=== PATIENT | female | born 1955 | race Caucasian/White ===

== ENCOUNTER → 2020-05-01 11:31 | Outpatient (CLI) | payer MEDICARE, OTHER, SELFPAY ==
--- NOTE | 2020-05-01 11:36 | DI.RAD.S_ITS ---
PROCEDURE: XR STERNUM MIN 2V INDICATIONS: tender lump on the sternum TECHNIQUE: 2 views of the sternum acquired. COMPARISON: None. FINDINGS: Bones: No fractures or dislocations. No suspicious bony lesions. Soft tissues: Retrosternal soft tissues appear normal. IMPRESSION: No fracture. If the patient's pain or other symptoms persist, consider further evaluation with CT. Dictated by: Brian Awad M.D. on 05/01/2020 at 12:00 Approved by: Brian Awad M.D. on 05/01/2020 at 12:02
== END ==
PROVIDERS: Family Provider Family Medicine; PCP Family Medicine; Referring Provider Nurse Practitioner Family; Visit Provider Nurse Practitioner Family
DX: R07.89 Other chest pain (principal)
CPT/HCPCS: 71120

== ENCOUNTER → 2020-05-30 09:20 | Outpatient (CLI) | payer MEDICARE, OTHER, SELFPAY ==
--- NOTE | 2020-05-30 09:22 | DI.MRI.S_ITS ---
PROCEDURE: MR CHEST WO CON INDICATIONS: sternum pain, tender lump TECHNIQUE: Axial 2-D FLASH in- and [id number], axial breath-hold T2 FSE, axial STIR FSE. Optional contrast may be given, followed by axial 2-D FLASH with fat saturation acquired over the lesion of concern. COMPARISON: [facility], CR, XR STERNUM MIN 2V, 05/01/2020, 11:31. FINDINGS: Image quality: Diagnostic. Respiratory motion is noted. Bones: Examination of sternum shows normal marrow signal and intact bony cortex. There is no sternal fracture. No marrow edema. No suspicious intraosseous lesion. Slight anteriorly deflected tip of xiphoid process is noted which is a normal variant. Soft tissues: No gross anterior chest wall soft tissue mass or fluid collection. Pectoralis muscles are symmetric and normal in size and signal intensity. No gross abnormality is seen in visualized bilateral breast soft tissue. Bilateral lung mays are grossly clear. No mediastinal lymphadenopathy or hematoma. IMPRESSION: 1. Slight anteriorly deflected tip of xiphoid process which is a normal variant. No sternal fracture or suspicious sternal lesion. 2. No anterior chest wall soft tissue abnormality. Dictated by: Domingo Page M.D. on 05/30/2020 at 10:18 Approved by: Domingo Page M.D. on 05/30/2020 at 10:32
== END ==
PROVIDERS: Family Provider Family Medicine; PCP Family Medicine; Referring Provider Nurse Practitioner Family; Visit Provider Nurse Practitioner Family
DX: R07.89 Other chest pain (principal)
CPT/HCPCS: 71550

== ENCOUNTER → 2020-09-26 09:28 | Outpatient (CLI) | payer MEDICARE, OTHER, SELFPAY ==
[2020-09-26 11:33] LABS: Creatinine Urine Random 115.1 mg/dL
[2020-09-26 11:36] LABS: Prothrombin Time 11.8 SECONDS (10.1-12.7)
[2020-09-26 11:37] LABS: Microalbumi Creatinin Ratio Ur 41.7 ug/mg CR (<30); Microalbumin Urine Random 4.8 mg/dL (0-1.6)
[2020-09-26 11:39] LABS: Add Manual Diff / Slide Review NO; Basophils Absolute Auto 0 /uL (0-100); Basophils Percent Auto 0.3 % (0-2); Eosinophils Absolute Auto 100 /uL (0-450); Eosinophils Percent Auto 1.2 % (2-4); Hematocrit 43.5 % (36-46); Hemoglobin 14.7 g/dL (12.0-16.0); Lymphocytes Absolute Auto 1600 /uL (1100-4500); Lymphocytes Percent Auto 21.6 % (25-40); Mean Corpuscular HGB Conc 33.7 % (30-36); Mean Corpuscular Volume 86.2 fL (80-100); Monocytes Absolute Auto 500 /uL (0-900); Monocytes Percent Auto 6.4 % (3-14); Neutrophils Absolute Auto 5400 /uL (1500-7000); Neutrophils Percent Auto 70.5 % (50-75); Platelet Count 224 X10^3/uL (150-400); Red Blood Cell Count 5.05 X10^6/uL (4.0-5.2); Red Cell Distribution Width 14.2 % (11.6-14.8); White Blood Cell Count 7.6 X10^3/uL (4.5-11.0)
[2020-09-26 12:03] LABS: Alanine Aminotransferase 37 IU/L (<35); Albumin 4.3 g/dL (3.5-5.0); Albumin Globulin Ratio 1.2 (1.0-2.8); Alkaline Phosphatase 86 U/L (38-126); Aspartate Aminotransferase 37 IU/L (14-36); Bilirubin Total 0.8 mg/dL (0.2-1.3); Blood Urea Nitrogen 20 mg/dL (7-17); Calcium 9.4 mg/dL (8.4-10.2); Carbon Dioxide 27 mmol/L (22-32); Chloride 108 mmol/L (98-107); Cholesterol 209 mg/dL (140-199); Estimated Glomerular Filt Rate > 60.0 mL/min (>60); Globulin 3.5 g/dL (1.7-4.1); Glucose 135 mg/dL (80-110); HDL Cholesterol 43 mg/dL (40-60); HEMOLYSIS < 15 (0-50); LDL Cholesterol Calculated 127 mg/dL (<100); Potassium 4.1 mmol/L (3.4-5.1); Sodium 142 mmol/L (137-145); Total Protein 7.8 g/dL (6.3-8.2); Triglycerides 194 mg/dL (35-150)
[2020-09-26 12:29] LABS: Thyroid Stimulating Hormone 0.913 uIU/mL (0.47-4.68)
== END ==
PROVIDERS: Family Provider Family Medicine; PCP Family Medicine; Referring Provider Family Medicine; Visit Provider Family Medicine
DX: E11.9 Type 2 diabetes mellitus without complications (principal); E78.2 Mixed hyperlipidemia
CPT/HCPCS: 36415; 80053; 80061; 82043; 82570; 83036; 84443; 85025; 85610

== ENCOUNTER → 2020-10-22 09:36 | Outpatient (CLI) | payer MEDICARE, OTHER, SELFPAY ==
[2020-10-22 10:09] LABS: COVID19 -Nasal RAPID Negative (Negative)
== END ==
PROVIDERS: Family Provider Family Medicine; PCP Family Medicine; Visit Provider Surgery
DX: Z01.812 Encounter for preprocedural laboratory examination (principal); Z11.59 Encounter for screening for other viral diseases
CPT/HCPCS: 87635; C9803

== ENCOUNTER 2020-10-23 12:19 | Day surgery (SDC) | payer MEDICARE, OTHER, SELFPAY ==
--- NOTE | 2020-10-23 | PATH_ITS ---
[facility] Accession Number: [id number] . 01 Material submitted: . PART A: colon - SIGMOID COLON POLYP PART B: colon - CECAL POLYP . 01 Clinical history: . SDC . 02 Diagnosis: A. Sigmoid Colon, Polyp, Biopsy: No colonic tissue identified. . B. Cecum, Polyp, Biopsy: No colonic tissue identified. [facility] 10/28/2020 1624 Local . 02 Comment: Both blocks A and B only contain vegetable/fecal material. Additional deeper levels were examined. . 02 Electronically signed: . Bernie Vargas MD, Pathologist NPI- [id number] . 01 Gross description: . Part A: SIGMOID COLON POLYP: Received in formalin is 1 fragment(s) of sanderson, soft tissue measuring 0.4 x 0.2 x 0.1 cm submitted entirely in 1 cassette(s) Part B: CECAL POLYP: Received in formalin is 1 fragment(s) of sanderson, soft tissue measuring 0.1 x 0.1 x 0.1 cm submitted entirely in 1 cassette(s) /QBJ 10/24/2020 0945 Local . 02 Pathologist provided ICD-10: Z12.11 . 02 CPT . 000972, [id number] Performed at: 01 [facility] [address] [facility], [place], [place] [id number] MD Apollo Vega MD Phone: [phone] Performed at: 02 [facility] [place] [address] [place], [place] [id number] MD Bernie Vargas MD Phone: [phone]
[2020-10-23] MEDS: LACTATED RINGERS 1,000 ML 200 ML IV (13:23)
[2020-10-23 13:24] VITALS: BP 147/79; PULSE 85; RESP 16; TEMP 36.9; O2SAT 97; BMI 34.2
--- NOTE | 2020-10-23 13:39 | P.HP_ITS ---
History of Present Illness History of Present Illness Date Patient Seen: 10/23/20 Time Patient Seen: 13:40 Chief complaint: [facility] Narrative: The patient presents for colorectal sreening. They have never had any previous examination for such. No personal or family history of colon cancer. On further history denies any recent gastrointestinal symptoms. No nausea, vomiting, abdominal pain, loss of appetite, unexplained weight loss, change in bowel habits, diarrhea, constipation, melena, hematochezia, or bright red blood per rectum. Patient History Medical History Chicken pox (~1960) Contusion of right side of back Depression (~2004) Diabetes mellitus (~2008) DVT (deep venous thrombosis) Hip pain History of Valencia's palsy Hyperlipidemia Hypertension Measles (~1962) Shoulder pain (~2014) Sleep apnea (~2013) Surgical History Anesthesia History of third molar tooth extraction (~1971) Status post laparoscopic cholecystectomy (~1997) Status post tonsillectomy and adenoidectomy (~1957) Family & Social History Family History Father Cancer Hypertension High cholesterol Grandfather Diabetes mellitus Stroke Mother Age: 95 Macular degeneration High cholesterol Grandmother Hypertension Family/Other No problems noted. Social History: household members spouse Tobacco & Substance use: Smoking Status Former smoker alcohol intake current alcohol intake frequency a few times a month Substance Use Type marijuana Meds Home Medications and Allergies Home Medications Medication Instructions Recorded Confirmed Type ASPIRIN (Aspirin) 81 mg PO Q DAY #0 01/03/12 10/23/20 History MULTIVITAMIN (#MULTIPLE VITAMINS) 1 cap PO Q DAY #0 01/03/12 10/23/20 History BORON/CA/CU/MG/MN/VIT D/ZINC 1 tab PO Q DAY #0 08/16/12 10/23/20 History (#CALCIUM 600 + MINERALS) One Touch Ultra Test Strips #1 ea 05/23/18 07/25/20 Rx liraglutide 0.6 mg/0.1 mL (18 mg/3 1.2 mg SUBCUT DAILY ml 09/07/19 10/23/20 History mL) subcutaneous pen injector lovastatin 20 mg tablet See Rx Instructions .ROUTE 12/03/19 10/23/20 Rx .COMPLEX #90 tablet glyburide 5 mg tablet 10 mg PO DAILY tab 05/01/20 10/23/20 History losartan 50 mg tablet 50 mg PO DAILY #90 tab 07/25/20 10/23/20 Rx venlafaxine 75 mg capsule,extended 75 mg PO BID #90 cap 07/25/20 10/23/20 Rx release 24 hr metformin 500 mg tablet 500 mg PO SEE INSTRUCTIONS #450 tab 08/18/20 10/23/20 Rx insulin detemir U-100 100 unit/mL See Rx Instructions SUBCUT BID 10/13/20 10/23/20 Rx (3 mL) subcutaneous pen #105 ml Allergies Allergy/AdvReac Type Severity Reaction Status Date / Time lisinopril [LISINOPRIL] Allergy Mild COUGHING Verified 10/23/20 13:14 amoxicillin [AMOXICILLIN] Allergy Unknown Verified 10/23/20 13:14 Review of Systems Review of Systems Narrative: A 10 point review of systems is negative except as noted in the HPI Exam Vital Signs (past 8 hours): - 10/23/20 13:24 Temperature 98.5 F Pulse Rate 85 Respiratory Rate 16 Blood Pressure 147/79 H Pulse Oximetry 97 Oxygen Delivery Method Room Air Narrative Exam Narrative: General-no acute distress, well nourished adult woman HEENT-moist mucous membranes, no scleral icterus Neck-supple, no lymphadenopathy Chest- non labored respirations, clear to auscultation bilaterally Cardiac-regular rate no peripheral edema Abdomen-soft, nontender, non distended Extremities-warm, well perfused Neurological-alert and oriented, no focal deficits Assessment & Plan Assessment & Plan narrative: The patient requires colorectal screening and colonoscopy is recommended. Technical details were discussed. Risks, benefits, alternatives explained. Risks including but not limited to myocardial infarction, aspiration, bleeding, pain, missed lesion, incomplete examination, need for further radiographic studies, colonic perforation, and need for major abdominal surgery were discussed. All questions were answered to their satisfaction, and they are in agreement with this plan.
--- NOTE | 2020-10-23 14:03 | SUR.OPER ---
CECUM AT 1403
--- NOTE | 2020-10-23 14:13 | P.OP.ENDO_ITS ---
Operative Date/Time/Diagnoses Date of procedure: 10/23/20 Time of procedure: 14:13 Pre-op diagnosis: Screening colonoscopy Post-op diagnosis: other (Colonic polyps x2) Procedure & Clinicians Study performed: Colonoscopy Same procedure as scheduled: Yes Indications: 65-year-old woman no prior colonoscopy here for routine screening Surgeon: Bernardino Block Procedure Notes SCOAP/Timeout: Performed Procedure in detail: Medications: Conscious sedation using 6mg IV midazolam and 150mcg IV of fentanyl The history and physical was performed/updated and the patient is ASA class is 2. The procedure was discussed in detail with the patient. Potential risks complications including infection, bleeding, missed diagnosis, perforation, need for surgery, and were explained. Their questions were answered and informed consent was obtained. Patient was brought to the procedure room and placed standard monitoring equipment. The patient's vital signs were monitored continuously throughout the entire procedure. Prior to starting time-out was performed. The patient was placed in the left lateral recumbent position. Procedural sedation was administered. Examination began with a thorough inspection of the perianal area there was no evidence of fissures, fistulae, external hemorrhoids or cutaneous malignancy. The colonoscopy scope was then placed into the anal canal and was advanced to the cecum, which was identified by the ileocecal valve, the appendiceal orifice and the confluence of the taenia. The scope was then slowly withdrawn examining colon thoroughly in all directions, irrigating it of any r esidual stool. 1 cm cecal polyp removed with cold snare in its entirety 1 cm sigmoid pedunculated polyp removed with cold snare in its entirety Sigmoid diverticulosis The patient tolerated the procedure well. They will be discharged once criteria are met. The prep was of good/excellent quality. The withdrawl time was 9 minutes. The sedation time was 26minutes. Specimen(s): other (Cecal, sigmoid polyps) Complications: none Impression: Colonic polyps Post-procedure Recommendations: Colonscopy in 5 years Disposition: same day surgery
[2020-10-23] MEDS: MIDAZOLAM 5 MG/5 ML VIAL IV (14:15)
[2020-10-23] MEDS: fentaNYL 250 MCG/5 ML INJ IV (14:15)
[2020-10-23 14:17] VITALS: BP 128/76; PULSE 97; RESP 13; TEMP 36.3; O2SAT 94
[2020-10-23 14:22] VITALS: BP 128/71; PULSE 105; RESP 14; O2SAT 94
[2020-10-23 14:27] VITALS: BP 134/76; PULSE 90; RESP 13; O2SAT 95
[2020-10-23 14:32] VITALS: BP 134/73; PULSE 92; RESP 16; O2SAT 95
[2020-10-23 14:37] VITALS: BP 150/83; PULSE 82; RESP 12; TEMP 36.3; O2SAT 95
== END 2020-10-23 14:58 | disposition home or self-care (01) ==
PROVIDERS: Family Provider Family Medicine; PCP Family Medicine; Referring Provider Family Medicine; Visit Provider Surgery
PROC: 0DJD8ZZ Inspection of Lower Intestinal Tract, Via Natural or Artificial Opening Endoscopic (ICD-10-PCS; CPT 45378; principal; 2020-10-23 13:45)
DX: Z12.11 Encounter for screening for malignant neoplasm of colon (principal); E11.9 Type 2 diabetes mellitus without complications; E78.5 Hyperlipidemia, unspecified; I10 Essential (primary) hypertension; G47.30 Sleep apnea, unspecified; Z86.718 Personal history of other venous thrombosis and embolism; Z79.4 Long term (current) use of insulin; K57.30 Diverticulosis of large intestine without perforation or abscess without bleeding
CPT/HCPCS: 45385; 99152; 99153; J2250; J3010

== ENCOUNTER → 2020-12-27 09:33 | Outpatient (CLI) | payer MEDICARE, OTHER, SELFPAY ==
--- NOTE | 2020-12-27 09:36 | DI.MG.S_ITS ---
BILATERAL DIGITAL SCREENING MAMMOGRAM 3D/2D WITH CAD: 12/27/2020 CLINICAL: Routine screening. Comparison is made to exams dated: 02/09/2018 mammogram, 11/10/2015 mammogram, and 10/23/2014 mammogram - [facility]. There are scattered fibroglandular elements in both breasts. Current study was also evaluated with a Computer Aided Detection (CAD) system. No significant masses, calcifications, or other findings are seen in either breast. There has been no significant interval change. IMPRESSION: NEGATIVE There is no mammographic evidence of malignancy. A 1 year screening mammogram is recommended. This exam was interpreted at Station ID: [id number]. NOTE: For mammograms, a report in lay terms will be sent to the patient. Approximately 15% of breast malignancies will not be visualized mammographically. In the management of a palpable breast mass, a negative mammogram must not discourage biopsy of a clinically suspicious lesion. Electronically Signed By: Nahun quiros/jaylen:12/29/2020 07:49:14 copy to: [employer] letter sent: Normal Exam ACR BI-RADS Category 1: Negative [id number]
== END ==
PROVIDERS: Family Provider Family Medicine; PCP Family Medicine; Referring Provider Family Medicine; Visit Provider Family Medicine
DX: Z12.31 Encounter for screening mammogram for malignant neoplasm of breast (principal)
CPT/HCPCS: 77063; 77067

== ENCOUNTER → 2022-06-11 08:32 | Outpatient (CLI) | payer MEDICARE, OTHER, SELFPAY ==
[2022-06-11 10:23] LABS: Add Manual Diff / Slide Review NO; Basophils Absolute Auto 0 /uL (0-100); Basophils Percent Auto 0.4 % (0-2); Eosinophils Absolute Auto 100 /uL (0-450); Eosinophils Percent Auto 1.5 % (2-4); Hematocrit 42.4 % (36-46); Hemoglobin 14.6 g/dL (12.0-16.0); Lymphocytes Absolute Auto 1200 /uL (1100-4500); Mean Corpuscular HGB Conc 34.4 % (30-36); Mean Corpuscular Volume 84.3 fL (80-100); Monocytes Absolute Auto 900 /uL (0-900); Neutrophils Absolute Auto 2900 /uL (1500-7000); Neutrophils Percent Auto 58.1 % (50-75); Platelet Count 163 X10^3/uL (150-400); Red Blood Cell Count 5.03 X10^6/uL (4.0-5.2); Red Cell Distribution Width 13.9 % (11.6-14.8)
[2022-06-11 10:35] LABS: Alanine Aminotransferase 61 IU/L (<35); Albumin 4.4 g/dL (3.5-5.0); Albumin Globulin Ratio 1.5 (1.0-2.8); Alkaline Phosphatase 76 U/L (38-126); Aspartate Aminotransferase 67 IU/L (14-36); BUN Creatinine Ratio 21.2 (6-22); Bilirubin Total 0.9 mg/dL (0.2-1.3); Blood Urea Nitrogen 14 mg/dL (7-17); Calcium 9.1 mg/dL (8.4-10.2); Carbon Dioxide 25 mmol/L (22-32); Chloride 103 mmol/L (98-107); Cholesterol 93 mg/dL (140-199); Estimated Glomerular Filt Rate > 60 mL/min (>60); Globulin 2.9 g/dL (1.7-4.1); Glucose 143 mg/dL (80-110); HDL Cholesterol 40 mg/dL (40-60); HEMOLYSIS < 15 (0-50); LDL Cholesterol Calculated 31 mg/dL (<100); Potassium 4.3 mmol/L (3.4-5.1); Sodium 139 mmol/L (137-145); Total Protein 7.3 g/dL (6.3-8.2); Triglycerides 110 mg/dL (35-150)
[2022-06-11 10:36] LABS: Hemoglobin A1C% w Est Avg Glu 7.3 % (4.0-6.0)
[2022-06-11 16:13] LABS: Creatinine Urine Random 14.9 mg/dL
[2022-06-11 16:16] LABS: Microalbumi Creatinin Ratio Ur 53.6 ug/mg CR (<30); Microalbumin Urine Random 0.8 mg/dL (0-1.6)
== END ==
PROVIDERS: Family Provider Family Medicine; PCP Family Medicine; Referring Provider Family Medicine; Visit Provider Family Medicine
DX: E11.9 Type 2 diabetes mellitus without complications (principal); E78.2 Mixed hyperlipidemia; Z79.4 Long term (current) use of insulin
CPT/HCPCS: 36415; 80053; 80061; 82043; 82570; 83036; 85025

== ENCOUNTER 2022-08-13 11:31 | Emergency (ER) | payer MEDICARE, OTHER, SELFPAY ==
[2022-08-13] VITALS (12 sets, daily range): BP systolic 141–166; BP diastolic 70–90; PULSE 69–86; RESP 16–18; TEMP 36.8; O2SAT 96–98; BMI 33.6
--- NOTE | 2022-08-13 11:45 | DI.RAD.S_ITS ---
PROCEDURE: XR FOREARM LT 2V INDICATIONS: Fall with pain/bruising TECHNIQUE: 2 views of the forearm were acquired. COMPARISON: None. FINDINGS: Bones: No fractures or dislocations. No suspicious bony lesions. Soft tissues: No suspicious soft tissue calcifications or masses. There is mild soft tissue swelling of the left forearm. IMPRESSION: Mild left forearm soft tissue swelling without underlying fracture or dislocation. If there is persistent clinical concern for occult fracture given adequate mechanism of injury, consider repeat imaging in 10-14 days. Dictated by: Nahun Bonilla M.D. on 08/13/2022 at 12:02 Approved by: Nahun Bonilla M.D. on 08/13/2022 at 12:06
--- NOTE | 2022-08-13 13:16 | ED_ITS ---
HPI - Fall <Zay Pierce PA-C - Last Filed: 08/13/22 16:31> General Chief Complaint: Fall Stated Complaint: Fall yesterday, L arm pain, hit head Time Seen by Provider: 08/13/22 11:55 Source: patient Mode of arrival: Ambulatory History of Present Illness HPI Narrative: Patient is a 58-year-old female who presents emergency room today with complaint of falling yesterday also some driftwood. Stasis or she can remember she tripped and fell. When she feels she landed on her left arm and also scratched her face. Denies any trauma to the head and also denies syncope. Also states she fell about 2 weeks ago when she was walking and tripped on some wheeze. Denies any feeling of dizziness or inability to keep her balance. Admits to being a marijuana smoker but states she did not have any marijuana prior to the fall. Also denies a history of drinking. Denies chest pain shortness of breath or any other neurological concerns. Main concern is pain to her left arm. Admits to having occurred history of type 2 diabetes but states that is well controlled she takes her medicines as ordered. Denies any other concerns Related Data Home Medications Medication Instructions Recorded Confirmed ASPIRIN (Aspirin) 81 mg PO Q DAY ##0 01/03/12 03/26/21 apple cider vinegar 600 mg capsule 600 mg PO DAILY 05/21/22 05/21/22 cinnamon bark 500 mg capsule 500 mg PO DAILY 05/21/22 05/21/22 (Cinnamon) omega 7-rvr-gal-fish oil 300 1 cap PO DAILY 05/21/22 05/21/22 mg-1,000 mg capsule (Fish Oil) vit C 250 mg-vit E 90 mg-zinc 40 1 tab PO BID 05/21/22 05/21/22 mg-copper 1 [id number] capsule (PreserVision AREDS-2) Previous Rx's Medication Instructions Recorded One Touch Ultra Test Strips #1 ea 05/23/18 losartan 50 mg tablet (Cozaar) 50 mg PO DAILY #90 tabs 09/17/21 venlafaxine 75 mg capsule,extended See Rx Instructions .Route 02/23/22 release 24 hr .COMPLEX #180 caps glyburide 5 mg tablet 10 mg PO DAILY #180 tabs 07/01/22 insulin detemir U-100 100 unit/mL See Rx Instructions SUBCUT BID 05/21/22 (3 mL) subcutaneous pen (Levemir #105 mL FlexTouch U-100 Insulin) liraglutide 0.6 mg/0.1 mL (18 mg/3 1.2 mg (0.2 mL) SUBCUT DAILY #6 mL 05/21/22 mL) subcutaneous pen injector (Victoza 2-Maged) metformin 500 mg tablet See Rx Instructions .Route 05/21/22 .COMPLEX #450 tabs nirmatrelvir 300 mg (150 mg See Rx Instructions PO .COMPLEX 06/11/22 x2)-ritonavir 100 mg tablet,dose #30 tabs pack(EUA) (Paxlovid) nitrofurantoin 100 mg PO BID #10 caps 08/13/22 monohydrate/macrocrystals 100 mg capsule (Macrobid) Allergies Allergy/AdvReac Type Severity Reaction Status Date / Time lisinopril [LISINOPRIL] Allergy Mild COUGHING Verified 05/21/22 08:57 amoxicillin [AMOXICILLIN] Allergy Unknown Verified 05/21/22 08:57 Review of Systems <Zay Pierce PA-C - Last Filed: 08/13/22 16:31> Review of Systems Narrative: R.O.S.: General: No fever, chills or fatigue. Cardiovascular: No chest pain or palpitations Respiratory: No S.O.B. HEENT: No congestion, ear pain, rhinorrhea, sore throat or tinnitus Gastrointestinal: No nausea or vomiting Skin: No rash or associated abnormalities Musculoskeletal: Pain to left forearm status post fall? Neurological: Awake, alert and in not apparent distress. No Headaches, changes in vision or other related neurological concerns. Patient History <Zay Pierce PA-C - Last Filed: 08/13/22 16:31> Medical History (Updated 08/13/22 @ 16:27 by Zay Pierce PA-C) Allergies (~1997) Ankle sprain Anxiety (~2009) Cervical somatic dysfunction Chicken pox (~1960) Contusion of right side of back Depression (~2004) Diabetes mellitus (~2008) DVT (deep venous thrombosis) Hip pain History of Valencia's palsy (~1989) Hot flashes Hyperlipidemia Hypertension Lumbar region somatic dysfunction Measles (~1962) Pelvic somatic dysfunction Sacral region somatic dysfunction Scabies (~1974) Shoulder pain (~2014) Sleep apnea (~2013) Somatic dysfunction of lower extremity Thoracic region somatic dysfunction Transaminitis Urge incontinence of urine Surgical History Anesthesia H/O hand surgery History of colonoscopy (~2019) History of third molar tooth extraction (~1971) Status post laparoscopic cholecystectomy (~1997) Status post tonsillectomy and adenoidectomy (~1957) Family History Father Cancer Hypertension High cholesterol Grandfather Diabetes mellitus Stroke Mother Age: 97 Macular degeneration High cholesterol Grandmother Hypertension Family/Other No problems noted. Social History household members: spouse Smoking Status: Former smoker alcohol intake: current Smoking Status: Former smoker alcohol intake frequency: holidays/special occasions only Substance Use Type: marijuana Exam <Zay Pierce PA-C - Last Filed: 08/13/22 16:31> Narrative Exam Narrative: Physical Exam: ? General: normal appearance, well developed, well nourished, alert, and awake. Not in acute distress. ? Head: Normocephalic, no lesions. Chest: Lungs CTAB, no rales, rhonchi or wheezes. ?? Heart: RRR, no murmurs, rubs or gallops. Eyes: PERRLA, EOM's full, conjunctivae clear. ? Neuro: Physiological, no localizing findings, CN3-12 intact. ?? Extremities: Patient has complaint of pain to palpation lateral at the proximal elbow and distal wrist areas. The left elbow area has very minimal swelling and no erythema noted on his physical inspection. ? Skin: Patient has a very mild abrasion above the left lateral eyebrow area. There is no associated erythema or swelling. ? PSYCHIATRIC: The mood is good, no blunted affect. Speech is clear. Thought process is linear, thought content is appropriate. The voice is without significant inflection. Gastrointestinal: Soft; NT; ND; Pos BS with Neg. rebound tenderness. No scars or major deformities noted on Visual Inspection. Initial Vital Signs Initial Vital Signs: Vital Signs Pulse Rate 86 08/13/22 11:36 Pulse Oximetry 96 08/13/22 11:36 <Joshua Merchant MD - Last Filed: 08/18/22 06:57> Initial Vital Signs Initial Vital Signs: Vital Signs Pulse Rate 86 08/13/22 11:36 Pulse Oximetry 96 08/13/22 11:36 Course <Zay Pierce PA-C - Last Filed: 08/13/22 16:31> Orders Ordered: ED Orders 08/13/22 11:45 XR forearm LT 2V Stat 08/13/22 13:56 EKG-12 Lead Stat 08/13/22 14:45 CBC Auto Diff [Complete Blood Count AUTO DIFF] Stat CMP [Comprehensive Metabolic Panel] Stat 08/13/22 15:18 Urine Culture Stat 08/13/22 15:30 Urine Microscopic Stat Vital Signs Vital signs: Vital Signs - 8 hr 08/13/22 11:42 08/13/22 11:36 08/13/22 11:37 Temperature 98.3 F Pulse Rate 74 86 80 Respiratory Rate 16 Blood Pressure 166/76 H Pulse Oximetry 98 96 98 Oxygen Delivery Method Room Air 08/13/22 11:37 08/13/22 12:00 08/13/22 13:24 Temperature Pulse Rate 73 Respiratory Rate 18 Blood Pressure 166/76 H 160/70 H Pulse Oximetry 96 Oxygen Delivery Method 08/13/22 12:30 08/13/22 13:00 08/13/22 13:30 Temperature Pulse Rate 77 73 69 Respiratory Rate Blood Pressure Pulse Oximetry 96 96 97 Oxygen Delivery Method 08/13/22 14:00 08/13/22 14:30 08/13/22 14:51 Temperature Pulse Rate 69 72 78 Respiratory Rate Blood Pressure Pulse Oximetry 97 98 98 Oxygen Delivery Method 08/13/22 14:51 08/13/22 15:00 08/13/22 15:00 Temperature Pulse Rate 72 Respiratory Rate Blood Pressure 147/90 H 141/74 H Pulse Oximetry 98 Oxygen Delivery Method <Joshua Merchant MD - Last Filed: 08/18/22 06:57> Orders Ordered: ED Orders 08/13/22 11:45 XR forearm LT 2V Stat 08/13/22 13:56 EKG-12 Lead Stat 08/13/22 14:45 CBC Auto Diff [Complete Blood Count AUTO DIFF] Stat CMP [Comprehensive Metabolic Panel] Stat 08/13/22 15:18 Urine Culture Stat 08/13/22 15:30 Urine Microscopic Stat Vital Signs Vital signs: Vital Signs - 8 hr 08/13/22 11:42 08/13/22 11:36 08/13/22 11:37 Temperature 98.3 F Pulse Rate 74 86 80 Respiratory Rate 16 Blood Pressure 166/76 H Pulse Oximetry 98 96 98 Oxygen Delivery Method Room Air 08/13/22 11:37 08/13/22 12:00 08/13/22 13:24 Temperature Pulse Rate 73 Respiratory Rate 18 Blood Pressure 166/76 H 160/70 H Pulse Oximetry 96 Oxygen Delivery Method 08/13/22 12:30 08/13/22 13:00 08/13/22 13:30 Temperature Pulse Rate 77 73 69 Respiratory Rate Blood Pressure Pulse Oximetry 96 96 97 Oxygen Delivery Method 08/13/22 14:00 08/13/22 14:30 08/13/22 14:51 Temperature Pulse Rate 69 72 78 Respiratory Rate Blood Pressure Pulse Oximetry 97 98 98 Oxygen Delivery Method 08/13/22 14:51 08/13/22 15:00 08/13/22 15:00 Temperature Pulse Rate 72 Respiratory Rate Blood Pressure 147/90 H 141/74 H Pulse Oximetry 98 Oxygen Delivery Method MDM - Fall <Zay Pierce PA-C - Last Filed: 08/13/22 16:31> Lab Data Result diagrams: 08/13/22 14:45 08/13/22 14:45 Labs: Lab Results 08/13/22 08/13/22 08/13/22 Range/Units 14:45 14:45 15:18 WBC 9.5 (4.5-11.0) X10^3/uL RBC 5.04 (4.0-5.2) X10^6/uL Hgb 14.5 (12.0-16.0) g/dL Hct 42.9 (36-46) % MCV 85.1 (80-100) fL MCH 28.8 (26-34) PG MCHC 33.8 (30-36) % RDW 14.3 (11.6-14.8) % Plt Count 184 (150-400) X10^3/uL Neut % (Auto) 65.0 (50-75) % Lymph % (Auto) 25.0 (25-40) % [place] % (Auto) 8.0 (3-14) % Eos % (Auto) 1.5 L (2-4) % Baso % (Auto) 0.5 (0-2) % Neut # (Auto) 6200 (5338-3974) /uL Lymph # (Auto) 2400 (3644-2170) /uL [place] # (Auto) 800 (0-900) /uL Eos # (Auto) 100 (0-450) /uL Baso # (Auto) 0 (0-100) /uL Sodium 141 (137-145) mmol/L Potassium 4.0 (3.4-5.1) mmol/L Chloride 106 (98-107) mmol/L Carbon Dioxide 26 (22-32) mmol/L BUN 17 (7-17) mg/dL Creatinine 0.66 (0.52-1.04) mg/dL Estimated GFR > 60 (>60) mL/min BUN/Creatinine Ratio 25.8 H (6-22) Glucose 84 (80-110) mg/dL Calcium 9.5 (8.4-10.2) mg/dL Total Bilirubin 0.7 (0.2-1.3) mg/dL AST 44 H (14-36) IU/L ALT 39 H (<35) IU/L Alkaline Phosphatase 62 (38-126) U/L Total Protein 7.7 (6.3-8.2) g/dL Albumin 4.3 (3.5-5.0) g/dL Globulin 3.4 (1.7-4.1) g/dL Albumin/Globulin Ratio 1.3 (1.0-2.8) Urine RBC 0-1/hpf (0-5/HPF) Urine WBC 10-30/hpf H (0-5/HPF) Urine Bacteria Many (>30) H (None) Ur Culture Indicated? Specimen cultured Urine Dip Bedside Urine Glucose 1000 mg/dl Bedside Urine Bilirubin - Negative Bedside Urine Ketone - Negative Urine Specific [place] 1.015 Bedside Urine Occult Blood - Negative Bedside Urine pH 5.5 Bedside Urine Protein - Negative Bedside Urine Urobilinogen - Negative Bedside Urine Nitrite + Positive Bedside Urine Leukocytes - Negative Esterase Imaging Data Extremity x-ray #1: Radiologist's Impression: PROCEDURE:? XR FOREARM LT 2V ? INDICATIONS:? Fall with pain/bruising ? TECHNIQUE:? 2 views of the forearm were acquired.? ? COMPARISON:? None. ? FINDINGS:? ? Bones:? No fractures or dislocations.? No suspicious bony lesions.? ? Soft tissues:? No suspicious soft tissue calcifications or masses.? There is mild soft tissue swelling of the left forearm. ? ? IMPRESSION:? Mild left forearm soft tissue swelling without underlying fracture or dislocation. ? If there is persistent clinical concern for occult fracture given adequate mechanism of injury, consider repeat imaging in 10-14 days. ? Dictated by: Nahun Bonilla M.D. on 08/13/2022 at 12:02 ? ? Approved by: Nahun Bonilla M.D. on 08/13/2022 at 12:06 ? ECG Data Interpretation: NSR MDM Narrative Medical decision making narrative: Patient is a 66-year-old female presents to the emergency room with pain to her left forearm after falling yesterday. Denies any alcohol marijuana or recreational drugs prior to the fall. Says she has fallen before but does not have any concerning history of falls without a ablation for AFib ablation for AFib ablation for AFib ablation for AFib mechanism. ECG was ordered to rule out any possible cardiac related concerns. CBC CMP and urine ordered to help rule out any infectious or other potential related concerns. Eight AST ALT in BUN creatinine and elevated as they have been in the past. Urine positive for urinary tract infection. Patient cannot remember having a urinary tract infection in the past so Macrobid ordered. <Joshua Merchant MD - Last Filed: 08/18/22 06:57> Lab Data Labs: Lab Results 08/13/22 08/13/22 08/13/22 Range/Units 14:45 14:45 15:18 WBC 9.5 (4.5-11.0) X10^3/uL RBC 5.04 (4.0-5.2) X10^6/uL Hgb 14.5 (12.0-16.0) g/dL Hct 42.9 (36-46) % MCV 85.1 (80-100) fL MCH 28.8 (26-34) PG MCHC 33.8 (30-36) % RDW 14.3 (11.6-14.8) % Plt Count 184 (150-400) X10^3/uL Neut % (Auto) 65.0 (50-75) % Lymph % (Auto) 25.0 (25-40) % [place] % (Auto) 8.0 (3-14) % Eos % (Auto) 1.5 L (2-4) % Baso % (Auto) 0.5 (0-2) % Neut # (Auto) 6200 (0460-7415) /uL Lymph # (Auto) 2400 (9567-3456) /uL [place] # (Auto) 800 (0-900) /uL Eos # (Auto) 100 (0-450) /uL Baso # (Auto) 0 (0-100) /uL Sodium 141 (137-145) mmol/L Potassium 4.0 (3.4-5.1) mmol/L Chloride 106 (98-107) mmol/L Carbon Dioxide 26 (22-32) mmol/L BUN 17 (7-17) mg/dL Creatinine 0.66 (0.52-1.04) mg/dL Estimated GFR > 60 (>60) mL/min BUN/Creatinine Ratio 25.8 H (6-22) Glucose 84 (80-110) mg/dL Calcium 9.5 (8.4-10.2) mg/dL Total Bilirubin 0.7 (0.2-1.3) mg/dL AST 44 H (14-36) IU/L ALT 39 H (<35) IU/L Alkaline Phosphatase 62 (38-126) U/L Total Protein 7.7 (6.3-8.2) g/dL Albumin 4.3 (3.5-5.0) g/dL Globulin 3.4 (1.7-4.1) g/dL Albumin/Globulin Ratio 1.3 (1.0-2.8) Urine RBC 0-1/hpf (0-5/HPF) Urine WBC 10-30/hpf H (0-5/HPF) Urine Bacteria Many (>30) H (None) Ur Culture Indicated? Specimen cultured Urine Dip Bedside Urine Glucose 1000 mg/dl Bedside Urine Bilirubin - Negative Bedside Urine Ketone - Negative Urine Specific [place] 1.015 Bedside Urine Occult Blood - Negative Bedside Urine pH 5.5 Bedside Urine Protein - Negative Bedside Urine Urobilinogen - Negative Bedside Urine Nitrite + Positive Bedside Urine Leukocytes - Negative Esterase Discharge Plan Departure Patient Disposition: Home Clinical Impression: Fall, Acute UTI Instructions: DI for Urinary Tract Infection (UTI), How to Prevent Falls Activity Restrictions/Additional Instructions: *You have been diagnosed with left forearm pain after a fall and urinary tract infection.. X-rays revealed a fracture to your left forearm. Antibiotics have been ordered and I suggest she take them as ordered. Please return to the emergency room for any emergent concerns arise. [ ] *What to do: *Please continue to take your regular medications as directed. [x] New medication prescriptions sent to your pharmacy: [ ] [ ] New medication written as a paper prescription [ ] No new medications given *Please follow up with your primary care provider in 2-3 days, call for an appointment. Let them know you were seen in the Emergency Department and that we ask that you be seen in follow up. We will electronically transmit a record of today's note if your PCP is in our system *If you do not have a primary care provider please contact the [facility] Resource line at [phone]. They will ask some questions about your medical history and help get you set up with a doctor in the community. *Return to Emergency Department if you should have any new, worsening or concerning symptoms, such as [fever greater than 101 F, shaking chills, worsening pain, persistent vomiting or other bothersome symptoms] Prescriptions: New nitrofurantoin monohyd/m-cryst [Macrobid] 100 mg capsule 100 mg PO BID Qty: 10 0RF Rx Instructions: must administer with a meal/food No Action ASPIRIN (Aspirin) 81 mg PO Q DAY Qty: 0 (DME) One Touch Ultra Test Strips 0 .Route .MEDSUPPLY Qty: 1 11RF Dose Instruction: As directed Rx Instructions: Use to test blood sugars twice daily. losartan [Cozaar] 50 mg tablet 50 mg PO DAILY Qty: 90 3RF venlafaxine 75 mg capsule,extended release 24hr See Rx Instructions .ROUTE .COMPLEX Qty: 180 1RF Dose Instruction: TAKE 1 CAPSULE TWICE DAILY Rx Instructions: TAKE 1 CAPSULE TWICE DAILY Paxlovid (EUA) 150 mg x 2- 100 mg tablet See Rx Instructions PO .COMPLEX Qty: 30 0RF Rx Instructions: take TWO 150 mg tablets of nirmatrelvir with ONE 100 mg tablet of ritonavir twice daily for 5 days PO cinnamon bark [Cinnamon] 500 mg capsule 500 mg PO DAILY apple cider vinegar 600 mg capsule 600 mg PO DAILY omega 7-wdg-xfi-fish oil [Fish Oil] 300-1,000 mg capsule 1 cap PO DAILY glyburide 5 mg tablet 10 mg PO DAILY Qty: 180 3RF Levemir FlexTouch U-100 Insuln 100 unit/mL (3 mL) insulin pen See Rx Instructions SUBCUT BID Qty: 105 3RF Label Comments: took 36 units this AM Rx Instructions: 50 units in am and 45 units in pm subcut twice a day; Victoza 2-Maged 0.6 mg/0.1 mL (18 mg/3 mL) pen injector 1.2 mg SUBCUT DAILY Qty: 6 11RF metformin 500 mg tablet See Rx Instructions .ROUTE .COMPLEX Qty: 450 3RF Dose Instruction: TAKE 3 TABLETS IN THE MORNING AND 2 TABLETS IN THE EVENING Rx Instructions: TAKE 3 TABLETS IN THE MORNING AND 2 TABLETS IN THE EVENING PreserVision AREDS-2 250-90-40-1 mg capsule 1 tab PO BID Referrals: Edgar Olguin DO [Primary Care Provider] - Visit Report Forms: Patient Portal/API <Joshua Merchant MD - Last Filed: 08/18/22 06:57> Cosign ED Attending Cosignature Attestation: I was immediately available in the department for consultation. This documentation has been reviewed and I agree with assessment and plan. Supervised by Joshua Merchant MD
[2022-08-13 15:34] LABS: Add Manual Diff / Slide Review NO; Basophils Absolute Auto 0 /uL (0-100); Basophils Percent Auto 0.5 % (0-2); Eosinophils Absolute Auto 100 /uL (0-450); Eosinophils Percent Auto 1.5 % (2-4); Hematocrit 42.9 % (36-46); Hemoglobin 14.5 g/dL (12.0-16.0); Lymphocytes Absolute Auto 2400 /uL (1100-4500); Mean Corpuscular HGB Conc 33.8 % (30-36); Mean Corpuscular Hemoglobin 28.8 PG (26-34); Mean Corpuscular Volume 85.1 fL (80-100); Monocytes Absolute Auto 800 /uL (0-900); Neutrophils Absolute Auto 6200 /uL (1500-7000); Platelet Count 184 X10^3/uL (150-400); Red Blood Cell Count 5.04 X10^6/uL (4.0-5.2); Red Cell Distribution Width 14.3 % (11.6-14.8); White Blood Cell Count 9.5 X10^3/uL (4.5-11.0)
--- NOTE | 2022-08-13 15:43 | PC.NURSE ---
pt ready to leave but waiting for results from labs.
[2022-08-13 16:05] LABS: Bacteria Urine Many (>30); Culture Indicated Urine Specimen Cultured; RBC Urine 0-1/HPF (0-5/HPF); WBC Urine 10-30/HPF (0-5/HPF)
[2022-08-13 16:10] LABS: Alanine Aminotransferase 39 IU/L (<35); Albumin 4.3 g/dL (3.5-5.0); Albumin Globulin Ratio 1.3 (1.0-2.8); Alkaline Phosphatase 62 U/L (38-126); Aspartate Aminotransferase 44 IU/L (14-36); BUN Creatinine Ratio 25.8 (6-22); Bilirubin Total 0.7 mg/dL (0.2-1.3); Blood Urea Nitrogen 17 mg/dL (7-17); Calcium 9.5 mg/dL (8.4-10.2); Carbon Dioxide 26 mmol/L (22-32); Chloride 106 mmol/L (98-107); Estimated Glomerular Filt Rate > 60 mL/min (>60); Globulin 3.4 g/dL (1.7-4.1); Glucose 84 mg/dL (80-110); HEMOLYSIS 34 (0-50); Sodium 141 mmol/L (137-145); Total Protein 7.7 g/dL (6.3-8.2)
== END 2022-08-13 16:39 | disposition home or self-care (01) ==
PROVIDERS: Emergency Provider Physician Assistant; Family Provider Family Medicine; PCP Family Medicine
DX: N39.0 Urinary tract infection, site not specified (principal); S09.90XA Unspecified injury of head, initial encounter; M79.605 Pain in left leg; W19.XXXA Unspecified fall, initial encounter
CPT/HCPCS: 73090; 80053; 81003; 81015; 85025; 87077; 87086; 93005; 99284

== ENCOUNTER → 2022-10-19 13:30 | Outpatient (CLI) | payer MEDICARE, OTHER, SELFPAY ==
[2022-10-19 14:05] LABS: Hemoglobin A1C% w Est Avg Glu 7.4 % (4.0-6.0)
[2022-10-19 14:15] LABS: Alanine Aminotransferase 48 IU/L (<35); Albumin 4.4 g/dL (3.5-5.0); Albumin Globulin Ratio 1.4 (1.0-2.8); Alkaline Phosphatase 68 U/L (38-126); Aspartate Aminotransferase 47 IU/L (14-36); BUN Creatinine Ratio 33.9 (6-22); Blood Urea Nitrogen 20 mg/dL (7-17); Calcium 9.6 mg/dL (8.4-10.2); Carbon Dioxide 28 mmol/L (22-32); Chloride 105 mmol/L (98-107); Cholesterol 113 mg/dL (140-199); Estimated Glomerular Filt Rate > 60 mL/min (>60); Globulin 3.2 g/dL (1.7-4.1); Glucose 136 mg/dL (80-110); HDL Cholesterol 47 mg/dL (40-60); HEMOLYSIS 48 (0-50); LDL Cholesterol Calculated 43 mg/dL (<100); Potassium 4.7 mmol/L (3.4-5.1); Sodium 142 mmol/L (137-145); Total Protein 7.6 g/dL (6.3-8.2); Triglycerides 114 mg/dL (35-150)
== END ==
PROVIDERS: Family Provider Family Medicine; PCP Family Medicine; Referring Provider Family Medicine; Visit Provider Family Medicine
DX: E11.9 Type 2 diabetes mellitus without complications (principal); E78.2 Mixed hyperlipidemia; R74.01 Elevation of levels of liver transaminase levels; Z79.4 Long term (current) use of insulin
CPT/HCPCS: 36415; 80053; 80061; 83036

== ENCOUNTER → 2023-01-28 09:06 | Outpatient (CLI) | payer MEDICARE, OTHER, SELFPAY ==
[2023-01-28 12:08] LABS: Hemoglobin A1C% w Est Avg Glu 7.6 % (4.0-6.0)
== END ==
PROVIDERS: Family Provider Family Medicine; PCP Family Medicine; Referring Provider Family Medicine; Visit Provider Family Medicine
DX: E11.9 Type 2 diabetes mellitus without complications (principal); Z79.4 Long term (current) use of insulin
CPT/HCPCS: 36415; 83036

== ENCOUNTER → 2023-05-03 10:31 | Outpatient (CLI) | payer MEDICARE, OTHER, SELFPAY ==
[2023-05-03 11:40] LABS: BUN Creatinine Ratio 27.3 (6-22); Blood Urea Nitrogen 21 mg/dL (7-17); Calcium 9.5 mg/dL (8.4-10.2); Carbon Dioxide 27 mmol/L (22-32); Chloride 102 mmol/L (98-107); Estimated Glomerular Filt Rate > 60 mL/min (>60); Glucose 184 mg/dL (80-110); HEMOLYSIS < 15 (0-50); Potassium 4.2 mmol/L (3.4-5.1); Sodium 141 mmol/L (137-145)
[2023-05-04 03:15] LABS: Labcorp Hemoglobin (Hb) A1c 7.1 % (4.8-5.6)
== END ==
PROVIDERS: Family Provider Family Medicine; PCP Family Medicine; Referring Provider Family Medicine; Visit Provider Family Medicine
DX: I10 Essential (primary) hypertension (principal); Z79.4 Long term (current) use of insulin; E11.9 Type 2 diabetes mellitus without complications
CPT/HCPCS: 80048; 83036

== ENCOUNTER → 2023-08-01 09:11 | Outpatient (CLI) | payer MEDICARE, OTHER, SELFPAY ==
[2023-08-01 10:23] LABS: Hemoglobin A1C% w Est Avg Glu 6.9 % (4.0-6.0)
== END ==
PROVIDERS: Family Provider Family Medicine; PCP Family Medicine; Referring Provider Family Medicine; Visit Provider Family Medicine
DX: E11.9 Type 2 diabetes mellitus without complications (principal); Z79.4 Long term (current) use of insulin
CPT/HCPCS: 36415; 83036

== ENCOUNTER → 2023-11-08 10:44 | Outpatient (CLI) | payer MEDICARE, OTHER, SELFPAY ==
[2023-11-08 12:37] LABS: Hemoglobin A1C% w Est Avg Glu 7.2 % (4.0-6.0)
[2023-11-08 13:05] LABS: Alanine Aminotransferase 37 IU/L (<35); Albumin 4.2 g/dL (3.5-5.0); Albumin Globulin Ratio 1.4 (1.0-2.8); Alkaline Phosphatase 58 U/L (38-126); Aspartate Aminotransferase 33 IU/L (14-36); BUN Creatinine Ratio 28.2 (6-22); Bilirubin Total 0.8 mg/dL (0.2-1.3); Blood Urea Nitrogen 20 mg/dL (7-17); Carbon Dioxide 27 mmol/L (22-32); Chloride 104 mmol/L (98-107); Cholesterol 98 mg/dL (140-199); Estimated Glomerular Filt Rate > 60 mL/min (>60); Glucose 192 mg/dL (80-110); HDL Cholesterol 47 mg/dL (40-60); HEMOLYSIS < 15 (0-50); LDL Cholesterol Calculated 35 mg/dL (<100); Potassium 4.6 mmol/L (3.4-5.1); Sodium 141 mmol/L (137-145); Total Protein 7.2 g/dL (6.3-8.2); Triglycerides 81 mg/dL (35-150)
[2023-11-08 13:28] LABS: TSH w/ Reflex to FT4 0.76 uIU/mL (0.47-4.68)
== END ==
PROVIDERS: Family Provider Family Medicine; PCP Family Medicine; Referring Provider Family Medicine; Visit Provider Family Medicine
DX: Z00.00 Encounter for general adult medical examination without abnormal findings (principal); E11.9 Type 2 diabetes mellitus without complications; R23.2 Flushing; I10 Essential (primary) hypertension; E78.2 Mixed hyperlipidemia; E11.29 Type 2 diabetes mellitus with other diabetic kidney complication; R80.9 Proteinuria, unspecified; Z79.4 Long term (current) use of insulin
CPT/HCPCS: 36415; 80053; 80061; 83036; 84443

== ENCOUNTER → 2024-05-18 14:39 | Outpatient (CLI) | payer MEDICARE, OTHER, SELFPAY ==
[2024-05-18 15:38] LABS: Hemoglobin A1C% w Est Avg Glu 7.6 % (4.0-6.0)
[2024-05-18 15:50] LABS: BUN Creatinine Ratio 28.4 (6-22); Blood Urea Nitrogen 21 mg/dL (7-17); Calcium 10.5 mg/dL (8.4-10.2); Carbon Dioxide 33 mmol/L (22-32); Chloride 105 mmol/L (98-107); Estimated Glomerular Filt Rate > 60 mL/min (>60); Glucose 170 mg/dL (80-110); HEMOLYSIS < 15 (0-50); Sodium 142 mmol/L (137-145)
[2024-05-21 16:48] LABS: Hep C Virus Ab w/Reflex Quant NEGATIVE s/c (NEGATIVE)
== END ==
PROVIDERS: Family Provider Family Medicine; PCP Family Medicine; Referring Provider Family Medicine; Visit Provider Family Medicine
DX: Z11.59 Encounter for screening for other viral diseases (principal); E11.9 Type 2 diabetes mellitus without complications; I10 Essential (primary) hypertension; Z79.4 Long term (current) use of insulin
CPT/HCPCS: 36415; 80048; 83036; 86803

== ENCOUNTER → 2024-08-14 11:42 | Outpatient (CLI) | payer MEDICARE, OTHER, SELFPAY ==
[2024-08-14 15:21] LABS: BUN Creatinine Ratio 21.3 (6-22); Blood Urea Nitrogen 16 mg/dL (7-17); Calcium 9.3 mg/dL (8.4-10.2); Carbon Dioxide 26 mmol/L (22-32); Chloride 103 mmol/L (98-107); Estimated Glomerular Filt Rate > 60 mL/min (>60); Glucose 153 mg/dL (80-110); HEMOLYSIS < 15 (0-50); Sodium 139 mmol/L (137-145)
[2024-08-14 15:34] LABS: Vitamin D 25 Hydroxy (D3) 38.7 ng/mL (30.0-100.0)
[2024-08-14 19:47] LABS: Hemoglobin A1C% w Est Avg Glu 7.2 % (4.0-6.0)
[2024-08-15 08:11] LABS: Ionized Calcium 4.8 mg/dL (4.5-5.6)
[2024-08-15 09:10] LABS: Parathyroid Hormone Int 46 pg/mL (15-65)
[2024-08-15 21:39] LABS: Free Kappa Lt Chains, Serum 34.7 mg/L (3.3-19.4); Free Lambda Lt Chains,Serum 15.5 mg/L (5.7-26.3)
== END ==
PROVIDERS: Family Provider Family Medicine; PCP Family Medicine; Referring Provider Family Medicine; Visit Provider Family Medicine
DX: E11.9 Type 2 diabetes mellitus without complications (principal); Z79.4 Long term (current) use of insulin; E83.52 Hypercalcemia
CPT/HCPCS: 36415; 80048; 82306; 82330; 83036; 83883; 83970; 84155; 84165

== ENCOUNTER 2024-10-29 12:07 | Emergency (ER) | payer MEDICARE, OTHER, SELFPAY ==
[2024-10-29 12:13] VITALS: BP 138/75; PULSE 94; RESP 16; TEMP 36.8; O2SAT 97; BMI 33.1
--- NOTE | 2024-10-29 12:36 | DI.RAD.S_ITS ---
PROCEDURE: XR HIP W PEL IF DONE RT 2V INDICATIONS: fall TECHNIQUE: An AP view of the pelvis and a frogleg lateral view of the hip were acquired. COMPARISON: None. FINDINGS: Bones: No fractures or dislocations. No suspicious bony lesions. The visualized pelvic ring appears intact. Soft tissues: No suspicious soft tissue calcifications or masses. IMPRESSION: No acute bony abnormality. Dictated by: Nixon Lloyd M.D. on 10/29/2024 at 13:44 Approved by: Nixon Lloyd M.D. on 10/29/2024 at 13:44
--- NOTE | 2024-10-29 12:52 | DI.US.S_ITS ---
PROCEDURE: US PERIPH VENOUS LOW EXTREM RT INDICATIONS: hip and leg pain TECHNIQUE: Real-time imaging, as well as color and pulse Doppler interrogation, were performed of the lower extremity deep veins from the inguinal ligament to the popliteal fossa, with documentation of the visualized calf veins. COMPARISON: None. FINDINGS: The common femoral, femoral, popliteal, and the visualized calf veins are normally compressible, and free of intraluminal thrombus. Color and pulse Doppler demonstrate normal phasic intraluminal flow. There is normal augmentation response to distal compression maneuver. IMPRESSION: No findings of lower extremity deep venous thrombosis. Dictated by: Hiren Carnes M.D. on 10/29/2024 at 13:57 Approved by: Hiren Carnes M.D. on 10/29/2024 at 13:57
--- NOTE | 2024-10-29 13:07 | ED.FALL ---
HPI - Fall <Renee Killian PA-C - Last Filed: 10/30/24 11:39> General Chief Complaint: Fall Stated Complaint: px and weakness in rt hip and leg, fall, no thinne Time Seen by Provider: 10/29/24 12:29 Source: patient Mode of arrival: Ambulatory History of Present Illness HPI Narrative: 69-year-old female with past medical history hypertension, diabetes, sleep apnea, depression, hyperlipidemia presents to the ED with right-sided hip pain for the past few days. No loss of consciousness. Patient not on blood thinners. Patient states that she might have bumped her nose and left elbow, and no other injuries. Patient declines to have the nose or arm evaluated. Patient requests that her hip be evaluated. No other trauma. No numbness, tingling, weakness. No chest pain, shortness of breath. Patient does endorse a distant history of blood clots during her , some 30 years ago. Related Data Home Medications Medication Instructions Recorded Confirmed ASPIRIN (Aspirin) 81 mg PO Q DAY ##0 01/03/12 10/29/24 apple cider vinegar 600 mg capsule 600 mg PO DAILY 05/21/22 10/29/24 cinnamon bark 500 mg capsule 500 mg PO DAILY 05/21/22 10/29/24 (Cinnamon) omega 8-akt-cwn-fish oil 300 1 cap PO DAILY 05/21/22 10/29/24 mg-1,000 mg capsule (Fish Oil) vit C 250 mg-vit E 90 mg-zinc 40 1 tab PO BID 05/21/22 10/29/24 mg-copper 1 cu-iakdeg-ucbtlf capsule (PreserVision AREDS-2) ofloxacin 0.3 % eye drops 1 drp EYE-BOTH ONCE 05/18/24 10/29/24 Previous Rx's Medication Instructions Recorded One Touch Ultra Test Strips #1 ea 05/23/18 dapagliflozin propanediol 10 mg 10 mg PO DAILY #90 tabs 11/08/23 tablet (Farxiga) losartan 100 mg tablet 100 mg PO DAILY blood pressure #90 11/08/23 tabs rosuvastatin 20 mg tablet 20 mg PO DAILY #90 tabs 11/22/23 metformin 500 mg tablet See Rx Instructions .Route 02/07/24 .COMPLEX #450 tabs glipizide 10 mg tablet, extended 10 mg PO DAILY diabetes #90 tabs 02/14/24 release 24 hr pen needle, diabetic 32 gauge x #180 ea 05/18/24 (BD Ultra-Fine Carmina Pen Needle) Trulicity 0.75 mg/0.5 mL 0.75 mg (0.5 mL) SUBCUT QWEEK #6 mL 05/30/24 subcutaneous pen injector (dulaglutide) venlafaxine 150 mg 150 mg PO DAILY #90 caps 08/17/24 capsule,extended release 24 hr (Effexor XR) cyclobenzaprine 5 mg tablet 5 mg PO BEDTIME PRN muscle spasm 10/29/24 #30 tabs insulin glargine 100 unit/mL (3 See Rx Instructions SUBCUT 10/29/24 mL) subcutaneous pen (Lantus .COMPLEX #105 mL Solostar U-100 Insulin) Allergies Allergy/AdvReac Type Severity Reaction Status Date / Time lisinopril [LISINOPRIL] Allergy Mild COUGHING Verified 10/29/24 15:24 amoxicillin [AMOXICILLIN] Allergy Unknown Verified 10/29/24 15:24 Review of Systems <Renee Killian PA-C - Last Filed: 10/30/24 11:39> Constitutional Constitutional: Denies chills, Denies fatigue, Denies fever(s), Denies frequent falls, Denies lethargy and Denies weakness Eyes Eyes: Denies change in vision, Denies eye discharge, Denies irritation and Denies loss of vision ENT Ears, Nose, Mouth, and Throat: Denies change in voice, Denies dizziness, Denies neck pain, Denies sore throat and Denies throat swelling Cardiovascular Cardiovascular: Denies chest pain, Denies irregular heart rhythm, Denies lightheadedness, Denies palpitations, Denies dyspnea, Denies dyspnea on exertion and Denies orthopnea Respiratory Respiratory: Denies cough, Denies dyspnea, Denies dyspnea on exertion and Denies wheezing Gastrointestinal Gastrointestinal: Denies abdominal pain, Denies change in bowel habits, Denies diarrhea, Denies nausea and Denies vomiting Musculoskeletal Musculoskeletal: Denies neck pain and Denies numbness Comments: Right-sided hip pain Integumentary/Breasts Skin/Breast: Denies pruritus, Denies erythema, Denies rash and Denies wounds Neurologic Neurologic: Denies behavioral changes, Denies confusion, Denies dizziness, Denies frequent falls, Denies loss of vision, Denies numbness and Denies weakness Psychiatric Psychiatric: Denies anxiety, Denies behavioral changes, Denies confusion, Denies depression, Denies homicidal ideation and Denies suicidal ideation Endocrine Endocrine: Denies fatigue, Denies flushing and Denies palpitations Hematologic/Lymphatic Hematologic/Lymphatic: Denies easy bruising Allergic/Immunologic Allergic/Immunologic: Denies urticaria, Denies throat swelling and Denies wheezing Patient History <Renee Killian PA-C - Last Filed: 10/30/24 11:39> Medical History (Updated 10/29/24 @ 14:34 by Renee Killian PA-C) Encounter for subsequent annual wellness visit (AWV) in Medicare patient Microalbuminuria due to type 2 diabetes mellitus Benign essential HTN Type 2 diabetes mellitus with insulin therapy Transaminitis Scabies (~1974) Allergies (~1997) Anxiety (~2009) Ankle sprain Hot flashes Urge incontinence of urine DVT (deep venous thrombosis) Hip pain Hyperlipidemia Sleep apnea (~2013) Depression (~2004) History of Valencia's palsy (~1989) Shoulder pain (~2014) Measles (~1962) Chicken pox (~1960) Diabetes mellitus (~2008) Contusion of right side of back Surgical History H/O hand surgery History of colonoscopy (~2019) Anesthesia Status post laparoscopic cholecystectomy (~1997) Status post tonsillectomy and adenoidectomy (~1957) History of third molar tooth extraction (~1971) Family History Father Cancer Hypertension High cholesterol Grandfather Diabetes mellitus Stroke Mother Age: 97 Macular degeneration High cholesterol Grandmother Hypertension Family/Other No problems noted. Social History household members: spouse Smoking Status: Former smoker alcohol intake: current Smoking Status: Former smoker alcohol intake frequency: holidays/special occasions only Exam <Renee Killian PA-C - Last Filed: 10/30/24 11:39> Narrative Exam Narrative: Const General:?cooperative, healthy appearing and comfortable [facility] Head:?normal to inspection Ears:?hearing grossly normal bilaterally Nose:?external nose normal Face and sinus:?normal facial exam and sinuses nontender Mouth:?oral mucosae normal Throat:?posterior oropharynx normal Eyes General:?appearance normal, both eyes and all related structures Neck Neck:?normal visual inspection and no lymphadenopathy noted Resp Effort & Inspection:?normal respiratory effort Auscultation:?clear to auscultation bilaterally Cardio Rate:?regular rate Rhythm:?regular rhythm Musculoskeletal No erythema, bruising, deformities, tenderness to palpation. Neurovascularly intact. Neuro General:?patient alert, patient awake and patient oriented x3 Initial Vital Signs Initial Vital Signs: Vital Signs Temperature 98.3 F 10/29/24 12:13 Pulse Rate 94 H 10/29/24 12:13 Respiratory Rate 16 10/29/24 12:13 Blood Pressure 138/75 10/29/24 12:13 Pulse Oximetry 97 10/29/24 12:13 Oxygen Delivery Method Room Air 10/29/24 12:13 <Giuseppe Burgess DO - Last Filed: 10/31/24 07:03> Initial Vital Signs Initial Vital Signs: Vital Signs Temperature 98.3 F 10/29/24 12:13 Pulse Rate 94 H 10/29/24 12:13 Respiratory Rate 16 10/29/24 12:13 Blood Pressure 138/75 10/29/24 12:13 Pulse Oximetry 97 10/29/24 12:13 Oxygen Delivery Method Room Air 10/29/24 12:13 Course <Renee Killian PA-C - Last Filed: 10/30/24 11:39> Orders Ordered: ED Orders 10/29/24 12:36 XR hip w pel if done RT 2V Stat 10/29/24 12:52 US periph venous low extrem rt Stat Vital Signs Vital signs: Vital Signs - 8 hr 10/29/24 12:13 Temperature 98.3 F Pulse Rate 94 H Respiratory Rate 16 Blood Pressure 138/75 Pulse Oximetry 97 Oxygen Delivery Method Room Air <DO Beltran Yin Last Filed: 10/31/24 07:03> Orders Ordered: ED Orders 10/29/24 12:36 XR hip w pel if done RT 2V Stat 10/29/24 12:52 US periph venous low extrem rt Stat Vital Signs Vital signs: Vital Signs - 8 hr 10/29/24 12:13 Temperature 98.3 F Pulse Rate 94 H Respiratory Rate 16 Blood Pressure 138/75 Pulse Oximetry 97 Oxygen Delivery Method Room Air MDM - Fall <Renee Killian PA-C - Last Filed: 10/30/24 11:39> MDM Narrative Medical decision making narrative: 69-year-old female with past medical history hypertension, diabetes, sleep apnea, depression, hyperlipidemia presents to the ED with right-sided hip pain for the past few days. Concern for fracture/dislocation versus arthritis versus other musculoskeletal etiology versus DVT versus other. X-rays and ultrasound obtained with no acute findings. Patient's symptoms likely due to musculoskeletal sprain/strain. Recommend Tylenol, ibuprofen, lidocaine patches. Recommend follow-up with PCP as soon as possible. ED return precautions discussed with patient. Patient verbalized understanding. Medical records reviewed: Yes Discharge Plan Departure Patient Disposition: Home Clinical Impression: Hip pain Qualifiers: Laterality: right Qualified Code(s): M25.551 - Pain in right hip Instructions: How to Prevent Falls Activity Restrictions/Additional Instructions: You were evaluated in the ED today for right-sided hip pain. Your x-ray and ultrasound were normal. It is unclear the reason for your symptoms, although arthritis or joint degeneration can not be ruled out. Please follow-up with your PCP for further evaluation. Return to the ED if you have worsening symptoms, numbness, tingling, weakness. Prescriptions: No Action ASPIRIN (Aspirin) 81 mg PO Q DAY Qty: 0 (DME) One Touch Ultra Test Strips 0 .Route .MEDSUPPLY Qty: 1 11RF Dose Instruction: As directed Rx Instructions: Use to test blood sugars twice daily. rosuvastatin 20 mg tablet 20 mg PO DAILY Qty: 90 3RF glipizide 10 mg tablet extended release 24hr 10 mg PO DAILY Qty: 90 3RF Rx Instructions: with food Trulicity 0.75 mg/0.5 mL pen injector 0.75 mg SUBCUT QWEEK Qty: 6 3RF losartan 100 mg tablet 100 mg PO DAILY Qty: 90 3RF Farxiga 10 mg tablet 10 mg PO DAILY Qty: 90 3RF metformin 500 mg tablet See Rx Instructions .ROUTE .COMPLEX Qty: 450 3RF Dose Instruction: TAKE 3 TABLETS IN THE MORNING AND 2 TABLETS IN THE EVENING Rx Instructions: TAKE 3 TABLETS IN THE MORNING AND 2 TABLETS IN THE EVENING cinnamon bark [Cinnamon] 500 mg capsule 500 mg PO DAILY apple cider vinegar 600 mg capsule 600 mg PO DAILY omega 1-hly-jpp-fish oil [Fish Oil] 300-1,000 mg capsule 1 cap PO DAILY PreserVision AREDS-2 250-90-40-1 mg capsule 1 tab PO BID ofloxacin 0.3 % drops 1 drp EYE-BOTH ONCE Patient Comments: [NO ORIGINAL SIG] (DME) pen needle, diabetic [BD Ultra-Fine Carmina Pen Needle] 32 gauge x 5/32 needle See Rx Instructions .Route Qty: 180 3RF Rx Instructions: insulin twice daily, As directed venlafaxine [Effexor XR] 150 mg capsule,extended release 24hr 150 mg PO DAILY Qty: 90 3RF cyclobenzaprine 5 mg tablet 5 mg PO BEDTIME PRN (Reason: muscle spasm) Qty: 30 4RF insulin glargine [Lantus Solostar U-100 Insulin] 100 unit/mL (3 mL) insulin pen See Rx Instructions SUBCUT .COMPLEX Qty: 105 3RF Rx Instructions: 50 units subQ in the morning and 45 units in the evening. Referrals: Ion Cantrell DO [Primary Care Provider] - Stand Alone Forms: Patient Portal/API/Survey ED Sign-out <Giuseppe Burgess DO - Last Filed: 10/31/24 07:03> Cosign ED Attending Cosignature Attestation: Dr Burgess Co-Sign Statement: I was available for consultation during this patient's emergency department visit. This chart is signed by myself for administrative purposes only. I did not have direct contact with this patient during this visit. They were seen independently by the APC.
[2024-10-29 14:46] VITALS: BP 142/70; PULSE 79; RESP 15; TEMP 36.7; O2SAT 99
== END 2024-10-29 14:59 | disposition home or self-care (01) ==
PROVIDERS: Emergency Provider Student in an Organized Health Care Education/Training Program; Family Provider Family Medicine; PCP Family Medicine
DX: M25.551 Pain in right hip (principal)
CPT/HCPCS: 73502; 93971; 99281; 99283

== ENCOUNTER → 2024-11-27 15:04 | Outpatient (CLI) | payer MEDICARE, OTHER, SELFPAY ==
[2024-11-27 15:41] LABS: BUN Creatinine Ratio 30.1 (6-22); Blood Urea Nitrogen 22 mg/dL (7-17); Calcium 10.1 mg/dL (8.4-10.2); Carbon Dioxide 27 mmol/L (22-32); Chloride 105 mmol/L (98-107); Cholesterol 107 mg/dL (140-199); Estimated Glomerular Filt Rate > 60 mL/min (>60); Glucose 166 mg/dL (80-110); HDL Cholesterol 48 mg/dL (40-60); HEMOLYSIS < 15 (0-50); LDL Cholesterol Calculated 19 mg/dL (<100); Potassium 4.5 mmol/L (3.4-5.1); Sodium 141 mmol/L (137-145); Triglycerides 198 mg/dL (35-150)
[2024-11-27 15:42] LABS: Hemoglobin A1C% w Est Avg Glu 7.6 % (4.0-6.0)
== END ==
PROVIDERS: Family Provider Family Medicine; PCP Family Medicine; Referring Provider Family Medicine; Visit Provider Family Medicine
DX: Z00.00 Encounter for general adult medical examination without abnormal findings; I10 Essential (primary) hypertension; E11.29 Type 2 diabetes mellitus with other diabetic kidney complication; R80.9 Proteinuria, unspecified; Z79.4 Long term (current) use of insulin
CPT/HCPCS: 80048; 80061; 83036

== ENCOUNTER → 2024-12-06 13:59 | Outpatient (CLI) | payer MEDICARE, OTHER, SELFPAY ==
--- NOTE | 2024-12-06 14:00 | DI.RAD.S_ITS ---
PROCEDURE: XR DEXA AXIAL SKELETON INDICATIONS: Screening for bone density and structure disorders COMPARISON: None. FINDINGS: Lumbar Spine: Bone mineral density 1.07 g/cm2, T score 0.1,. Left Femoral Neck: Bone mineral density 0.92 g/cm2, T score 0.6. Left Hip: Bone mineral density 1.19 g/cm2, T score 2,. Fracture Risk Calculation (when applicable): Not applicable for normal bone mineral density IMPRESSION: T-scores are within normal limits. Follow-up guidelines as follows: Osteoporosis: Consider a repeat DEXA and Vertebral Fracture Assessment (VFA) exam in 2 years or sooner if medically necessary, to reassess this patient's status. Osteopenia: Consider a repeat DEXA in 2-3 years to reassess this patient's status, or if there is a new clinical indication. Normal: Consider a repeat DEXA in 5 years or sooner, or if there is a new clinical indication. All treatment decisions require clinical judgment and consideration of individual patient factors, including patient preferences, comorbidities, previous drug use, risk factors not captured in the FRAX model (e.g., frailty, falls, vitamin D deficiency, increased bone turnover, interval significant decline in bone density ) and possible under- or over-estimation of fracture risk by FRAX. In addition, the NOF Guide recommends that FDA-approved medical therapies be considered in postmenopausal women and men age >= 50 years with a: * Hip or vertebral (clinical or morphometric) fracture * T-score of <=-2.5 at the spine or hip * Ten-year fracture probability by FRAX of >= 3% for hip fracture or >=20% for major osteoporotic fracture. Dictated by: Sergio Cobb M.D. on 12/06/2024 at 17:02 Approved by: Sergio Cobb M.D. on 12/06/2024 at 17:02
--- NOTE | 2024-12-06 14:00 | DI.MG.S_ITS ---
BILATERAL DIGITAL SCREENING MAMMOGRAM 3D/2D WITH CAD: 12/06/2024 CLINICAL: Routine screening. Comparison is made to exam dated: 12/27/2020 mammogram - [facility]. There are scattered areas of fibroglandular density (category b / 25%-50% glandular tissue). Current study was also evaluated with a Computer Aided Detection (CAD) system. No significant masses, calcifications, or other findings are seen in either breast. There has been no significant interval change. IMPRESSION: NEGATIVE There is no mammographic evidence of malignancy. A 1 year screening mammogram is recommended. Based on the Tyrer Cuzick model (a risk assessment model) the patient's lifetime risk is 6.2% and her 10 year risk is 4.3%. According to the ACR, ACS, and NCCN guidelines, an annual breast MRI exam along with mammogram is recommended if the patient's lifetime risk is 20% or greater. This exam was interpreted at Station ID: [id number]. NOTE: For mammograms, a report in lay terms will be sent to the patient. Approximately 15% of breast malignancies will not be visualized mammographically. In the management of a palpable breast mass, a negative mammogram must not discourage biopsy of a clinically suspicious lesion. Electronically Signed By: Abdulaziz quan/jaylen:12/06/2024 18:17:28 letter sent: Normal Exam ACR BI-RADS Category 1: Negative
== END ==
PROVIDERS: Family Provider Family Medicine; PCP Family Medicine; Referring Provider Family Medicine; Visit Provider Family Medicine
DX: Z12.31 Encounter for screening mammogram for malignant neoplasm of breast (principal); M85.89 Other specified disorders of bone density and structure, multiple sites
CPT/HCPCS: 77063; 77067; 77080

== ENCOUNTER → 2025-01-02 15:38 | Outpatient (CLI) | payer MEDICARE, OTHER, SELFPAY ==
--- NOTE | 2025-01-02 15:39 | DI.RAD.S_ITS ---
PROCEDURE: XR ELBOW LT MIN 3V INDICATIONS: Left elbow pain TECHNIQUE: 3 views of the elbow were acquired. COMPARISON: None. FINDINGS: Bones: No fractures or dislocations. No suspicious bony lesions. Soft tissues: No elbow joint effusion. No suspicious soft tissue calcifications. Olecranon soft tissue swelling IMPRESSION: Soft tissue swelling over the olecranon may reflect olecranon bursitis. No fracture. Approved by: Gaston Abebe M.D. on 01/02/2025 at 17:22
== END ==
PROVIDERS: Family Provider Family Medicine; PCP Family Medicine; Referring Provider Registered Nurse; Visit Provider Registered Nurse
DX: M25.522 Pain in left elbow (principal); M79.89 Other specified soft tissue disorders
CPT/HCPCS: 73080

== ENCOUNTER → 2025-02-22 14:49 | Outpatient (CLI) | payer MEDICARE, OTHER, SELFPAY ==
[2025-02-22 15:54] LABS: Hemoglobin A1C% w Est Avg Glu 6.8 % (4.0-6.0)
== END ==
PROVIDERS: Family Provider Family Medicine; PCP Family Medicine; Referring Provider Family Medicine; Visit Provider Family Medicine
DX: E11.29 Type 2 diabetes mellitus with other diabetic kidney complication (principal); R80.9 Proteinuria, unspecified; Z79.4 Long term (current) use of insulin
CPT/HCPCS: 36415; 83036

== ENCOUNTER → 2025-06-04 12:33 | Outpatient (CLI) | payer MEDICARE, OTHER, SELFPAY ==
[2025-06-04 13:19] LABS: Hemoglobin A1C% w Est Avg Glu 6.0 % (4.0-6.0)
== END ==
PROVIDERS: Family Provider Family Medicine; PCP Family Medicine; Referring Provider Family Medicine; Visit Provider Family Medicine
DX: E11.9 Type 2 diabetes mellitus without complications (principal); Z79.4 Long term (current) use of insulin
CPT/HCPCS: 36415; 83036

== ENCOUNTER → 2025-09-02 12:07 | Outpatient (CLI) | payer MEDICARE, OTHER, SELFPAY ==
[2025-09-02 14:57] LABS: Hemoglobin A1C% w Est Avg Glu 6.2 % (4.0-6.0)
[2025-09-02 15:15] LABS: Blood Urea Nitrogen 19 mg/dL (7-17); Calcium 10.1 mg/dL (8.4-10.2); Carbon Dioxide 23 mmol/L (22-32); Chloride 103 mmol/L (98-107); Estimated Glomerular Filt Rate > 60 mL/min (>60); Glucose 162 mg/dL (70-99); HEMOLYSIS < 15 (0-50); Potassium 4.6 mmol/L (3.4-5.1); Sodium 141 mmol/L (137-145)
== END ==
PROVIDERS: PCP Family Medicine; Referring Provider Family Medicine; Visit Provider Family Medicine
DX: E11.9 Type 2 diabetes mellitus without complications (principal); I10 Essential (primary) hypertension; Z79.4 Long term (current) use of insulin
CPT/HCPCS: 36415; 80048; 83036